=== PATIENT | male | born 1990 | race Two or more races ===

== ENCOUNTER 2021-09-21 18:26 | Emergency (ER) | payer OTHER ==
[~2021-09-21] VITALS: Ht 190.5 cm; Wt 113.4 kg
[2021-09-21] MEDS ORDERED: COZAAR50 MG PO (21:35)
== END 2021-09-21 22:31 | disposition home or self-care (01) ==
LOC: ER 18:26
DX: I16.9 Hypertensive crisis, unspecified (principal); Z20.822 Contact with and (suspected) exposure to COVID-19